=== PATIENT | female | born 1950 | race Hispanic/Latino ===

== ENCOUNTER 2020-10-26 19:20 | Emergency (ER) | payer MEDICARE ==
[~2020-10-26] VITALS: Ht 152.4 cm; Wt 79.4 kg
[~2020-10-26 19:20] MED LIST: ASPI-556 PO; DAPA10TA PO; FLUT15.845 NS; FURO20TA4 PO; INSU3INS5 SQ; LISI2.5T2 PO; OMEP40CA21 PO; ROSU5TAB12 PO
[2020-10-26 19:22] VITALS: BP 130/67
[2020-10-26] MEDS ORDERED: ORPH-43 PO (22:14)
[2020-10-26] MEDS ORDERED: MELO7.5T12 PO (22:14)
== END 2020-10-26 22:25 | disposition home or self-care (01) ==
LOC: EDH 19:52
DX: S10.93XA Contusion of unspecified part of neck, initial encounter (principal); M79.18 Myalgia, other site; R07.89 Other chest pain; Q89.2 Congenital malformations of other endocrine glands; E11.9 Type 2 diabetes mellitus without complications; Z88.5 Allergy status to narcotic agent; Z88.0 Allergy status to penicillin; Z95.0 Presence of cardiac pacemaker; Z79.899 Other long term (current) drug therapy; Z79.4 Long term (current) use of insulin; Z79.82 Long term (current) use of aspirin; Z79.1 Long term (current) use of non-steroidal anti-inflammatories (NSAID); V49.49XA Driver injured in collision with other motor vehicles in traffic accident, initial encounter; Y93.89 Activity, other specified; Y92.89 Other specified places as the place of occurrence of the external cause; Y99.8 Other external cause status
CPT/HCPCS: 70450; 72125

== ENCOUNTER → 2022-03-27 | Outpatient (CLI) | payer MEDICARE ==
[~2022-03-27] MED LIST changes: +LISI2.5T13 PO; -LISI2.5T2 PO; +MELO7.5T12 PO; +ORPH-43 PO
== END | disposition home or self-care (01) ==
LOC: SHCH 09:46
PROVIDERS: ATTEND Internal Medicine Cardiovascular Disease
DX: I42.9 Cardiomyopathy, unspecified (principal); E11.9 Type 2 diabetes mellitus without complications; E78.5 Hyperlipidemia, unspecified
CPT/HCPCS: 93306

== ENCOUNTER → 2022-08-30 | Outpatient (CLI) | payer MEDICARE ==
[~2022-08-30] MED LIST changes: -ORPH-43 PO; +ORPH100T4 PO
== END | disposition home or self-care (01) ==
LOC: RAH 14:45
PROVIDERS: ATTEND Internal Medicine Cardiovascular Disease
DX: I50.33 Acute on chronic diastolic (congestive) heart failure (principal)
CPT/HCPCS: 71046